=== PATIENT | male | born 1965 | race Caucasian/White ===

== ENCOUNTER → 2017-11-16 | Outpatient (CLI) | payer OTHER ==
[~2017-11-16] MED LIST: APIX5TAB PO; ASPI81 PO; CANA100T PO; CHOL1CAP PO; CHOL1CAP2 PO; METO100 PO; NITR.4 SL; OMEG100010 PO; OMEP20TA39 PO; TEST1.622 TD; VICT18IN SQ
[2017-11-16 10:32] LABS: WET PREP SPERM NONE SEEN /HPF (NONE SEEN)
== END ==
LOC: CLAB 09:49
PROVIDERS: ATTEND Family Medicine
DX: Z30.2 Encounter for sterilization (principal)
CPT/HCPCS: 89321